=== PATIENT | male | born 1980 | race Hispanic/Latino ===

== ENCOUNTER 2018-10-07 12:17 | Emergency (ER) | payer OTHER ==
[~2018-10-07 12:17] MED LIST: FENO145T PO
== END 2018-10-07 13:28 | disposition home or self-care (01) ==
LOC: EDH 12:17
DX: B02.9 Zoster without complications (principal); R10.12 Left upper quadrant pain

== ENCOUNTER 2020-04-23 03:51 | Emergency (ER) | payer OTHER ==
[2020-04-23] MEDS ORDERED: LIDOCAINE 1%-EPI 1:100,000 20 ML VIAL IJ ONE (04:05)
[2020-04-23] MEDS ORDERED: SULFAMETHOX-TMP DS 800/160 TAB ONE (04:11)
[2020-04-23] MEDS ORDERED: TETANUS/DIPHTHERIA TOXOID [ADULT] 0.5 ML VIAL IM ONE (04:11)
== END 2020-04-23 04:48 | disposition home or self-care (01) ==
LOC: EDH 03:51
DX: S81.811A Laceration without foreign body, right lower leg, initial encounter (principal); X58.XXXA Exposure to other specified factors, initial encounter; Y93.89 Activity, other specified; Y92.89 Other specified places as the place of occurrence of the external cause; Y99.8 Other external cause status
CPT/HCPCS: 12002; 90471; 90714; 99283; J3490